=== PATIENT | male | born 1990 | race African-American/Black ===

== ENCOUNTER 2022-05-21 18:13 | Emergency (ER) | payer OTHER ==
[~2022-05-21] VITALS: Ht 180.3 cm; Wt 77.0 kg
[~2022-05-21 18:13] MED LIST: IBUP-2029 MT
[2022-05-21] MEDS ORDERED: DIPHENHYDRAMINE 50MG/ML VIAL IV ONE (19:30)
[2022-05-21] MEDS ORDERED: ACETAMINOPHEN 325MG TABLET PO ONE (19:30)
[2022-05-21] MEDS ORDERED: METOCLOPRAMIDE HCL 10MG/2ML VIAL IV ONE (19:30)
[2022-05-21] MEDS ORDERED: ASPIRIN 81MG TABLET PO ONE (19:30)
[2022-05-21 21:02] LABS: BASOPHILS % 1.4 % (0.0-2.0); EOSINOPHILS % 1.4 % (0.0-5.0); HEMATOCRIT. 36.3 % (42.0-52.0); LYMPHOCYTES % 16.1 % (20.0-50.0); MEAN CORPUSCULAR HEMOGLOBIN 32.5 pg (28.0-32.0); MEAN CORPUSCULAR VOLUME 98.5 fL (80.0-94.0); MEAN PLATELET VOLUME 7.2 fl (7.4-10.4); MONOCYTES % 7.7 % (2.0-8.0); NEUTROPHILS % 73.4 % (40.0-76.0); PLATELET 300 x1000/uL (130-400); RED BLOOD CELL COUNT 3.68 mill/uL (4.7-6.1); RED CELL DISTRIBUTION WIDTH 18.7 % (11.6-14.6)
[2022-05-21 21:08] LABS: CHLORIDE 100 mEq/L (98-107)
[2022-05-21 21:12] LABS: PARTIAL THROMBOPLASTIN TIME 26.7 sec (23.4-31.0); PROTHROMBIN TIME 10.4 sec (9.6-11.0)
[2022-05-21] MEDS ORDERED: POTASSIUM CHLORIDE 20MEQ TABLET SR PO NR (21:30)
[2022-05-21] MEDS ORDERED: POTASSIUM CHLORIDE 20MEQ/PACKET PO ONE (22:30)
[2022-05-22] MEDS ORDERED: KETOROLAC 30MG/ML VIAL IV ONE (01:15)
[2022-05-22] MEDS ORDERED: KETOROLAC 30MG/ML VIAL IV NR (03:00)
[2022-05-22 03:46] VITALS: BP 146/97
== END 2022-05-22 04:35 | disposition home or self-care (01) ==
LOC: ER 18:13
DX: R07.89 Other chest pain (principal); G43.909 Migraine, unspecified, not intractable, without status migrainosus
CPT/HCPCS: 36415; 71045; 80053; 84484; 85025; 85610; 85730; 93005; 96374; 96375; 99285; J1200; J1885; J2765

== ENCOUNTER 2022-08-02 11:02 | Emergency (ER) | payer OTHER ==
[~2022-08-02] VITALS: Ht 180.3 cm; Wt 80.0 kg
[2022-08-02 11:03] VITALS: BP 140/99
[2022-08-02 14:47] LABS: CLARITY URINE CLEAR (CLEAR); COLOR URINE YELLOW (YELLOW); KETONES URINE TRACE (NEGATIVE); LEUKOCYTE ESTERASE URINE NEGATIVE (NEGATIVE); NITRITE URINE NEGATIVE (NEGATIVE); OCCULT BLOOD URINE NEGATIVE (NEGATIVE); PH URINE 6.5 (4.5-8.0); PROTEIN URINE TRACE (NEGATIVE); SPECIFIC GRAVITY URINE 1.012 (1.005-1.030)
[2022-08-02 14:55] LABS: HEMATOCRIT. 42.3 % (42.0-52.0); HEMOGLOBIN. 14.3 g/dL (14.0-18.0); MEAN CORPUSCULAR VOLUME 94.5 fL (80.0-94.0); PLATELET 190 x1000/uL (130-400); RED BLOOD CELL COUNT 4.47 mill/uL (4.7-6.1); RED CELL DISTRIBUTION WIDTH 15.1 % (11.6-14.6)
[2022-08-02 15:04] LABS: CHLORIDE 96 mEq/L (98-107)
[2022-08-02 15:15] LABS: ETHANOL BLOOD 80 mg/dL
[2022-08-02] MEDS ORDERED: MAGNESIUM OXIDE 400MG TABLET PO SCH (15:15)
[2022-08-02] MEDS ORDERED: POTASSIUM CHLORIDE 20MEQ TABLET SR PO ONE (15:15)
[2022-08-02 15:27] LABS: *AMPHETAMINES SCREEN URINE NEGATIVE (NEGATIVE); *BARBITURATES SCREEN URINE NEGATIVE (NEGATIVE); *BENZODIAZEPINES SCREEN URINE NEGATIVE (NEGATIVE); *COCAINE SCREEN URINE NEGATIVE (NEGATIVE); CANNABINOID URINE SCREEN NEGATIVE (NEGATIVE); METHADONE URINE SCREEN NEGATIVE (NEGATIVE); OPIATES URINE SCREEN NEGATIVE (NEGATIVE); PHENCYCLIDINE URINE SCREEN NEGATIVE (NEGATIVE)
[2022-08-02 15:33] LABS: PLATELET ESTIMATE NORMAL
[2022-08-02] MEDS ORDERED: TOPUD PO (15:36)
[2022-08-02] MEDS ORDERED: IBUP-2028 MT (15:36)
== END 2022-08-02 15:43 | disposition home or self-care (01) ==
LOC: ER 11:02
DX: J10.1 Influenza due to other identified influenza virus with other respiratory manifestations (principal); E87.6 Hypokalemia; Z20.822 Contact with and (suspected) exposure to COVID-19; Z91.041 Radiographic dye allergy status; Z88.0 Allergy status to penicillin
CPT/HCPCS: 36415; 71045; 80053; 80305; 80320; 81003; 83880; 84484; 85025; 87426; 87804; 93005; 99285; G0480

== ENCOUNTER 2022-12-11 15:44 | Emergency (ER) | payer MEDICAID ==
[~2022-12-11] VITALS: Ht 180.3 cm; Wt 77.7 kg
[~2022-12-11 15:44] MED LIST changes: +AMLO10TA80 PO; +COR3 PO; +FAMO20TA8 PO; +FOLI-43 PO; +GABA-529 MT; +IBUP-2028 MT; -IBUP-2029 MT; +LEVO750T68 PO; +LOSA25TA3 PO; +METR-167 PO; +ONDA4TAB11 SL; +SERT25TA74 PO; +THIA100T72 PO; +TOPUD PO
[2022-12-11 15:58] VITALS: BP 118/76
[2022-12-11] MEDS ORDERED: CEPH500T MT (19:26)
[2022-12-11] MEDS ORDERED: MUPI15CR11 TP (19:26)
[2022-12-11] MEDS ORDERED: KETO15CR2 TP (19:26)
[2022-12-11] MEDS ORDERED: HYDR-4001 MT ×2 (19:27)
[2022-12-11] MEDS ORDERED: LIDO5CRE2 TP (19:31)
== END 2022-12-11 20:00 | disposition home or self-care (01) ==
LOC: ER 15:44
DX: L01.00 Impetigo, unspecified (principal); Z88.5 Allergy status to narcotic agent; Z88.8 Allergy status to other drugs, medicaments and biological substances; Z91.013 Allergy to seafood
CPT/HCPCS: 99283

== ENCOUNTER 2023-08-07 05:41 | Emergency (ER) | payer MEDICAID ==
[~2023-08-07] VITALS: Ht 180.3 cm; Wt 70.0 kg
[~2023-08-07 05:41] MED LIST changes: +CEPH500T MT; +KETO15CR2 TP; +LIDO5CRE2 TP; +LOSA-412 PO; -LOSA25TA3 PO; +MUPI15CR11 TP
[2023-08-07] MEDS ORDERED: ONDANSETRON HCL 4MG/2ML INJ IV STA (05:44)
[2023-08-07] MEDS ORDERED: KETOROLAC 30MG/ML VIAL IV ONE (05:45)
[2023-08-07] MEDS ORDERED: SODIUM CHLORIDE 0.9% 1,000 ML IV ONE (05:45)
[2023-08-07 05:47] VITALS: BP 136/84; PULSE 88; RESP 16; TEMP 98.1; O2SAT 98
[2023-08-07 06:26] LABS: BASOPHILS % 1.3 % (0.0-2.0); EOSINOPHILS % 0.7 % (0.0-5.0); HEMATOCRIT. 43.9 % (42.0-52.0); LYMPHOCYTES % 17.3 % (20.0-50.0); MEAN CORPUSCULAR HEMOGLOBIN 30.7 pg (28.0-32.0); MEAN CORPUSCULAR HGB CONC 31.9 g/dL (31.0-37.0); MEAN CORPUSCULAR VOLUME 96.1 fL (80.0-94.0); MEAN PLATELET VOLUME 7.5 fl (7.4-10.4); MONOCYTES % 5.8 % (2.0-8.0); NEUTROPHILS % 74.9 % (40.0-76.0); PLATELET 210 x1000/uL (130-400); RED BLOOD CELL COUNT 4.57 mill/uL (4.7-6.1); RED CELL DISTRIBUTION WIDTH 16.4 % (11.6-14.6); WHITE BLOOD COUNT 6.1 x1000/uL (4.5-11.0)
[2023-08-07 06:37] LABS: PROTHROMBIN TIME 10.5 sec (9.6-11.0)
[2023-08-07 06:47] LABS: ALANINE AMINOTRANSFERASE 50 IU/L (10-49); ALBUMIN 4.8 g/dL (3.2-4.8); ASPARTATE AMINOTRANSFERASE 90 IU/L (<34); BILIRUBIN TOTAL 0.9 mg/dL (0.1-1.0); CALCIUM 10.1 mg/dL (8.7-10.4); CARBON DIOXIDE 25 mEq/L (21-32); CHLORIDE 98 mEq/L (98-107); CREATININE 0.9 mg/dL (0.6-1.3); GLUCOSE 113 mg/dL (70-105); POTASSIUM 3.4 mEq/L (3.5-5.1); PROTEIN TOTAL 8.6 g/dL (6.0-8.3); SODIUM 137 mEq/L (136-145); UREA NITROGEN BLOOD 7 mg/dL (9-23)
[2023-08-07] MEDS ORDERED: ONDANSETRON HCL 4MG/2ML INJ IV NR (08:15)
[2023-08-07] MEDS ORDERED: KETOROLAC 30MG/ML VIAL IV NR (08:15)
[2023-08-07] MEDS ORDERED: TOPUD PO (09:29)
[2023-08-07] MEDS ORDERED: ONDA4TAB50 PO (09:29)
[2023-08-07 10:14] LABS: TROPONIN I HIGH SENSITIVITY < 4 ng/L (3.0-53)
== END 2023-08-07 10:42 | disposition home or self-care (01) ==
LOC: ER 05:41
DX: R10.9 Unspecified abdominal pain (principal); R07.89 Other chest pain; R11.2 Nausea with vomiting, unspecified; Z91.041 Radiographic dye allergy status; Z88.5 Allergy status to narcotic agent; Z91.013 Allergy to seafood; Z79.899 Other long term (current) drug therapy
CPT/HCPCS: 80053; 83690; 85025; 85610; 84484; 36415; 93005; 96361; 96374; 96375; 99284; J1885; J2405; J7030; Z7610 ×3